=== PATIENT | female | born 1995 | race Caucasian/White ===

== ENCOUNTER → 2018-06-11 | Outpatient (CLI) | payer BC | END | disposition home or self-care (01) | LOC: LAB SHORT 13:53 → LAB 13:53 | PROVIDERS: Hospitalist | DX: Z12.4 Encounter for screening for malignant neoplasm of cervix (principal) | CPT/HCPCS: G0145 ==

== ENCOUNTER → 2019-09-01 | Outpatient (CLI) | payer BC | END | disposition home or self-care (01) | LOC: LAB SHORT 14:10 → LAB UCHC 14:10 | DX: Z11.59 Encounter for screening for other viral diseases (principal) | CPT/HCPCS: 86317 ==